=== PATIENT | female | born 1980 | race Caucasian/White ===

== ENCOUNTER 2019-05-18 18:02 | Emergency (ER) | payer OTHER, SELFPAY | END 2019-05-18 18:11 | disposition left against medical advice (07) | DX: Z53.21 Procedure and treatment not carried out due to patient leaving prior to being seen by health care provider (principal) | CPT/HCPCS: 99211; G0463 ==

== ENCOUNTER 2019-10-27 00:54 | Emergency (ER) | payer OTHER, SELFPAY ==
[2019-10-27 00:57] VITALS: BP 160/92; PULSE 118; RESP 18; TEMP 36.5; O2SAT 100
[2019-10-27 01:05] VITALS: BP 160/92; PULSE 118; RESP 16; TEMP 36.5; O2SAT 100
--- NOTE | 2019-10-27 02:12 | PC.NURSE ---
pt witnessed walking out per wireless cellular technician Omar.
--- NOTE | 2019-10-27 02:13 | PC.NURSE ---
pt not in room when checked on, staff stated they saw pt walking towards exit. charge nurse notified.
== END 2019-10-27 02:17 | disposition left against medical advice (07) ==
DX: Z53.21 Procedure and treatment not carried out due to patient leaving prior to being seen by health care provider (principal)
CPT/HCPCS: 99199

== ENCOUNTER 2019-10-27 18:39 | Emergency (ER) | payer OTHER, SELFPAY ==
[2019-10-27 18:52] VITALS: BP 142/93; PULSE 75; RESP 16; TEMP 36.7; O2SAT 99
--- NOTE | 2019-10-27 19:02 | ED.EAR ---
HPI - Ear Problem General Chief complaint: Upper Respiratory Infection Stated complaint: Sinus Infection Time Seen by Provider: 10/27/19 18:57 Source: patient and RN notes reviewed Mode of arrival: ambulatory Limitations: no limitations History of Present Illness HPI Narrative: Patient presents today with a 2-day history of bilateral ear pain right greater than left, rhinorrhea, congestion. She does report some intermittent muffled hearing in the right ear. Denies fever or cough. She has been taking Excedrin without relief and currently rates her pain /10. Denies history of environmental allergies. MD Complaint: ear pain Related Data Allergies Allergy/AdvReac Type Severity Reaction Status Date / Time No Known Allergies Allergy Verified 10/27/19 18:45 Review of Systems Review of Systems: Narrative: CONSTITUTIONAL: Denies body aches, fever, chills, or sweats. EYES: Denies visual changes, redness, or discharge. ENT: Denies sore throat. + Bilateral ear pain, rhinorrhea, congestion CARDIOVASCULAR: Denies chest pain, palpitations, or edema. RESPIRATORY: Denies cough or dyspnea. GASTROINTESTINAL: Denies abdominal pain, nausea, vomiting, or diarrhea. GENITOURINARY: Denies dysuria or hematuria. SKIN: Denies rash, itching, or wounds. MUSCULOSKELETAL: Denies back pain, joint pain, or myalgia. NEUROLOGIC: Denies headache, numbness, tingling, or weakness. PSYCH: Denies depression or anxiety. [facility] Social History Social History (Updated 03/29/19 @ 12:52 by Steffany Meyers CNP) Smoking status: Current some day smoker Tobacco type: cigarettes Gender identity (if verbalized by the patient): Female Comments At time of signature, I have reviewed and agree with nursing past medical, surgical, social and family history unless otherwise noted. Please see nursing chart for further information. There is no relevant family history pertinent to the presenting complaint Exam Narrative: Exam Narrative: GENERAL: Well-appearing, well-nourished, and in no acute distress. HEAD: Normocephalic, atraumatic. EYES: EOMI. No redness or drainage. Conjunctivae normal. ENT: Mucous membranes pink and moist. Nares congested with clear drainage. No rhinorrhea. TMs normal bilaterally with bulging clear fluid. No evidence of ear infection. Throat normal. Uvula midline. NECK: Normal AROM. Supple. No lymphadenopathy. CHEST: No respiratory distress. Clear to auscultation. HEART: Regular rate and rhythm. No murmur appreciated. Normal peripheral pulses. EXTREMITIES: Normal range of motion. No edema. SKIN: Warm, dry, no rash. Capillary refill normal. Normal skin turgor. NEURO: No focal deficits. Alert and oriented x3. Gait steady. PSYCH: Normal affect. No signs of depression or anxiety. Course Vital Signs Vital signs: Vital Signs Temperature 98.1 F 10/27/19 18:52 Pulse Rate 75 10/27/19 18:52 Respiratory Rate 16 10/27/19 18:52 Blood Pressure 142/93 H 10/27/19 18:52 Pulse Oximetry 99 10/27/19 18:52 Temperature 98.1 F 10/27/19 18:52 Pulse Rate 75 10/27/19 18:52 Respiratory Rate 16 10/27/19 18:52 Blood Pressure 142/93 H 10/27/19 18:52 Pulse Oximetry 99 10/27/19 18:52 Reviewed. Pt has been instructed to follow up with her PCP regarding her elevated blood pressure today. Medical Decision Making Differential Diagnosis Differential Diagnosis: Otitis media, otitis externa, ruptured TM, serous otitis, eustachian tube dysfunction, URI, sinusitis Vital Signs Vital Signs: Vital Signs Temperature 98.1 F 10/27/19 18:52 Pulse Rate 75 10/27/19 18:52 Respiratory Rate 16 10/27/19 18:52 Blood Pressure 142/93 H 10/27/19 18:52 Pulse Oximetry 99 10/27/19 18:52 Temperature 98.1 F 10/27/19 18:52 Pulse Rate 75 10/27/19 18:52 Respiratory Rate 16 10/27/19 18:52 Blood Pressure 142/93 H 10/27/19 18:52 Pulse Oximetry 99 10/27/19 18:52 Critical Care Time Critical Care Time Critical Care
== END 2019-10-27 19:11 | disposition home or self-care (01) ==
PROVIDERS: Emergency Provider Nurse Practitioner
DX: H65.193 Other acute nonsuppurative otitis media, bilateral (principal); J30.2 Other seasonal allergic rhinitis; F17.210 Nicotine dependence, cigarettes, uncomplicated
CPT/HCPCS: 99213; G0463